=== PATIENT | female | born 1975 | race Caucasian/White ===

== ENCOUNTER 2016-09-10 01:12 | Emergency (ER) | payer BC ==
[~2016-09-10] VITALS: Ht 165.1 cm; Wt 49.7 kg
[~2016-09-10 01:12] MED LIST: B-COCAP20 PO; FLV1 PO; MIRT15TA2 PO; MTR600X PO; PYR50 PO; SERT100T PO; SUMA100T16 PO; THM100 PO
[2016-09-10 01:18] VITALS: TEMP 36.6; Ht 165.1 cm; Wt 49.7 kg
[2016-09-10 01:47] LABS: BASO % 0.6 %; BASO ABS # 0.03 K/uL (0-0.2); COMPLETE YES; EOS % 5.8 %; HEMATOCRIT 33.1 % (37-47); IG% 0.2 %; LYMPH % 48.3 %; LYMPH ABS # 2.56 K/uL (1.2-3.4); MEAN CELL VOLUME 89.9 fL (80-100); MEAN CORPUSCULAR HEMOGLOBIN 31.8 pg (25-34); MEAN CORPUSCULAR HGB CONC 35.3 g/dl (32-36); MEAN PLATELET VOLUME 10.9 fL (7.4-10.4); MONO % 14.7 %; NEUT % 30.4 %; PLATELET COUNT 156 K/uL (130-400); RED BLOOD COUNT 3.68 M/uL (4.2-5.4)
[2016-09-10 01:56] LABS: URINE APPEARANCE CLEAR (CLEAR); URINE BILIRUBIN NEG (NEG); URINE COLOR YELLOW; URINE NITRITE NEG (NEG); URINE SPECIFIC GRAVITY 1.011 (1.000-1.030); UROBILINOGEN NEG (NEG); ZZUR CULT IF INDIC CLEAN CATCH NO
[2016-09-10 01:57] LABS: MANUAL MICROSCOPIC REQUIRED? NO; PREG INTERNAL NEGATIVE QC NEG CLEAR BACKGROUND; PREG INTERNAL POSITIVE QC POS CONTROL LINE; REVIEW REQ? NO
[2016-09-10 02:03] LABS: BUN/CREATININE RATIO 4.8 (10-20); CALCIUM 8.5 mg/dl (8.5-10.1); CREATININE 0.65 mg/dl (0.60-1.20); POTASSIUM 3.1 mmol/L (3.5-5.1)
[2016-09-10 02:14] LABS: ALB/GLOB RATIO 1.3 (0.9-2); THYROID STIMULATING HORMONE 2.94 uIu/ml (0.300-4.500)
--- NOTE | 2016-09-10 02:29 | EMERGENCY ROOM VISIT NOTE ---
History First contact with patient: :30 Chief Complaint: MENTAL HEALTH EVALUATION Stated Complaint: ANXIETY,DEPRESSION,NOT EATING History of Present Illness The patient is a 41 year old female who presents to the Emergency Department by private vehicle for evaluation of anxiety and depression. She reports a long- standing history of both anxiety and depression. She most recently follows with [facility] provider, Dr. Ho. She has only seen this provider on 2 separate occasions. She saw her a few days ago and it was suggested that she be admitted for "4-5 days" to help with her symptoms of worsening anxiety and depression. She reports that she and her have been for 1.5 years. 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 She reports the stress of raising her children and working worsened her symptoms. She had moved from [place] to [place] with a friend to help save money. From there she moved to [place]. She recently returned to [place] 3-4 weeks ago. Her symptoms of anxiety have worsened. She has had a decreased appetite. She reports this evening was the first meal that she had eaten in 4-5 days. The meal was with her daughters as well as her . This evening, upon returning home, she felt very weak and tired. She equates it to not eating well. She denies any drug or substance use. She reports no alcohol use. She denies any pain rating her discomfort a 0/10. The patient is also treated for migraine headaches. She denies any fevers, chills, recent illness, blurry vision, double vision, slurred speech, facial droop, unilateral weakness/ numbness, chest pain, hallucinations, suicidal ideation, or homicidal ideation. Review of Systems A complete 10-point Review of Systems was discussed with the patient, with pertinent positives and negatives listed in the History of Present Illness. All remaining Review of Systems questions can be considered negative unless otherwise specified. Past Medical/Surgical History Medical Problems: (1) Alcohol abuse (2) Cholecystectomy (3) FX DORSAL VERTEBRA-CLOSE (4) MIGRAINE UNSPECIFIED W/O INTRACT MGRN W/O STATUS MIGRAINOSUS (5) [place] Teeth Removal Surgical Problems: (1) Hx of cholecystectomy Family History Cancer Social History Smoking Status: Current Every Day Smoker Smokeless Tobacco Use: No Alcohol Use: heavy Drug Use: none Marital Status: Housing Status: lives with family Occupation Status: employed Current/Historical Medications Scheduled B-Complex W/ C & Folic Acid (Renal), 1 CAP PO BID Folic Acid (Folic Acid), 1 MG PO QAM Mirtazapine Soltab (Remeron Soltab), 15 MG PO QPM Pyridoxine HCl (Vitamin B-6), 50 MG PO QAM Sertraline Hcl (Zoloft), 200 MG PO QAM Sumatriptan Succinate (Imitrex), 100 MG PO PRN Thiamine HCl (Vitamin B-1), 100 MG PO QAM Scheduled PRN Ibuprofen (Ibuprofen), 600 MG PO TID PRN for PAIN/MD ORDERS Allergies Coded Allergies: No Known Allergies (Unverified , 09/10/16) Physical Exam Vital Signs Date Time Temp Pulse Resp B/P Pulse Ox O2 Delivery O2 Flow Rate FiO2 09/10/16 02:35 91 18 119/81 98 09/10/16 01:18 36.6 101 20 122/85 97 Room Air Pain Rating (0-10): 0 Physical Exam VITAL SIGNS - Vital signs and nursing notes were reviewed. GENERAL - 41-year-old female appearing her stated age who is in no acute distress. HEAD - NC/AT. EYES - PERRL with EOMI bilaterally. Sclera anicteric. Palpebral conjunctiva pink and moist with no injection. EARS - No deformities of external structures noted on gross examination bilaterally. No pain elicited with palpation of the tragus bilaterally. External auditory canals without discharge or otorrhea. Tympanic membranes pearly murphy without retraction or bulging. No fluid or purulent material visualized behind the TM. Handle of malleus, umbo, cone of light, pars tensa/ flaccid all easily visualized. NOSE - Midline and without cyanosis. No epistaxis or purulent drainage noted. Septum midline without deviation or septal hematoma noted. MOUTH/OROPHARYNX - Without perioral cyanosis. Buccal mucosa pink and moist and without leukoplakia. Tongue midline with equal elevation of palate bilaterally. No tonsillar hypertrophy, erythema, or exudates noted. Good dentition noted. NECK - Neck with FROM. Supple to palpation. No lymphadenopathy noted. LUNGS - Chest wall symmetric without accessory muscle use, intercostals retractions, or central cyanosis. Normal vesicular breath sounds CTA B/L. No wheezes, rales, or rhonchi appreciated. CARDIAC - RRR with S1/S2. No murmur, rubs, or gallops appreciated. ABDOMEN - Abdominal contour flat without pulsations or visible masses. BS normoactive all four quadrants. No tenderness, palpable masses, hepatosplenomegaly, or ascites noted. EXTREMITIES - No clubbing or peripheral cyanosis. No pretibial edema present. +3 /5 radial and dorsalis pedis pulses palpated throughout. FROM with no tremors, fasciculations, or clonus noted on PROM throughout. +5/5 strength noted in UE/ LE bilaterally. PSYCHIATRIC - Rate and volume of speech is appropriate. She has no suicidal or homicidal ideation. She is occasionally tearful with conversation involving her daughters. She seems sorrowful of her current situation and not being able to see her daughters as much. She is intelligent individual and reports that she refuses to be treated "in a psych caceres". She has no auditory or visual hallucinations. She is otherwise appropriate, but sad. Medical Decision & Procedures Laboratory Results 09/10/16 01:36 Red Blood Count 3.68, Mean Corpuscular Volume 89.9, Mean Corpuscular Hemoglobin 31.8, Mean Corpuscular Hemoglobin Concent 35.3, Mean Platelet Volume 10.9, Neutrophils (%) (Auto) 30.4, Lymphocytes (%) (Auto) 48.3, Monocytes (%) (Auto) 14.7, Eosinophils (%) (Auto) 5.8, Basophils (%) (Auto) 0.6, Neutrophils # (Auto ) 1.61, Lymphocytes # (Auto) 2.56, Monocytes # (Auto) 0.78, Eosinophils # (Auto ) 0.31, Basophils # (Auto) 0.03 09/10/16 01:36 Test 09/10/16 01:32 09/10/16 01:36 Urine Color YELLOW Urine Appearance CLEAR (CLEAR) Urine pH 6.0 (4.5-7.5) Urine Specific [place] 1.011 (1.000-1.030) Urine Protein NEG (NEG) Urine Glucose (UA) NEG (NEG) Urine Ketones NEG (NEG) Urine Occult Blood NEG (NEG) Urine Nitrite NEG (NEG) Urine Bilirubin NEG (NEG) Urine Urobilinogen NEG (NEG) Urine Leukocyte Esterase NEG (NEG) Urine Test NEG (NEG) Urine Opiates Screen NEG (NEG) Urine Methadone, Qualitative NEG (NEG) Urine Barbiturates POS (NEG) Urine Phencyclidine (PCP) Level NEG (NEG) Ur Amphetamine/Methamphetamine NEG (NEG) MDMA (Ecstasy) Screen NEG (NEG) Urine Benzodiazepines Screen NEG (NEG) Urine Cocaine Metabolite NEG (NEG) Urine Marijuana (THC) NEG (NEG) White Blood Count 5.30 K/uL (4.8-10.8) Red Blood Count 3.68 M/uL (4.2-5.4) Hemoglobin 11.7 g/dL (12.0-16.0) Hematocrit 33.1 % (37-47) Mean Corpuscular Volume 89.9 fL (80-100) Mean Corpuscular Hemoglobin 31.8 pg (25-34) Mean Corpuscular Hemoglobin Concent 35.3 g/dl (32-36) Platelet Count 156 K/uL (130-400) Mean Platelet Volume 10.9 fL (7.4-10.4) Neutrophils (%) (Auto) 30.4 % Lymphocytes (%) (Auto) 48.3 % Monocytes (%) (Auto) 14.7 % Eosinophils (%) (Auto) 5.8 % Basophils (%) (Auto) 0.6 % Neutrophils # (Auto) 1.61 K/uL (1.4-6.5) Lymphocytes # (Auto) 2.56 K/uL (1.2-3.4) Monocytes # (Auto) 0.78 K/uL (0.11-0.59) Eosinophils # (Auto) 0.31 K/uL (0-0.5) Basophils # (Auto) 0.03 K/uL (0-0.2) RDW Standard Deviation 46.3 fL (36.4-46.3) RDW Coefficient of Variation 14.1 % (11.5-14.5) Immature Granulocyte % (Auto) 0.2 % Immature Granulocyte # (Auto) 0.01 K/uL (0.00-0.02) Anion Gap 6.0 mmol/L (3-11) Est Creatinine Clear Calc Drug Dose 87.6 ml/min Estimated GFR () 126.0 Estimated GFR (Non- 108.7 BUN/Creatinine Ratio 4.8 (10-20) Calcium Level 8.5 mg/dl (8.5-10.1) Total Bilirubin 0.3 mg/dl (0.2-1) Aspartate Amino Transf (AST/SGOT) 30 U/L (15-37) Alanine Aminotransferase (ALT/SGPT) 35 U/L (12-78) Alkaline Phosphatase 37 U/L (45-117) Total Protein 7.4 gm/dl (6.4-8.2) Albumin 4.2 gm/dl (3.4-5.0) Globulin 3.2 gm/dl (2.5-4.0) Albumin/Globulin Ratio 1.3 (0.9-2) Thyroid Stimulating Hormone (TSH) 2.940 uIu/ml (0.300-4.500) Salicylates Level 2.2 mg/dl (2.8-20) Acetaminophen Level 14 ug/ml (10-30) Ethyl Alcohol mg/dL < 3.0 mg/dl (0-3) ED Course Patient was seen and evaluated by myself. Labs were obtained. I had a discussion with the patient with case management present. Laboratory results demonstrate no acute leukocytosis, worrisome anemia, or bandemia. She has no significant electrolyte abnormalities. Urine tox demonstrates barbiturates, but no other significant findings. Medical alcohol was negative. I had a discussion with the patient offered inpatient management which she adamantly declines this point. She's not suicidal or homicidal. She is able to make this decision herself. She declines any further evaluation or intervention at this point. The patient will follow-up with her psychiatrist today's visit. She will return to the emergency department for any changing or worsening symptoms. Patient discharged home afebrile and in good Medical Decision Given the patient's presentation and stated complaints, I did elect to perform the above-mentioned workup. The patient presents today for worsening anxiety and depression. I had a lengthy discussion with the patient with case management present. The patient declines inpatient evaluation. She is adamant that she is not interested at all for this. She reports that her psychiatrist lied to her by sending her to the emergency department. She felt as though she should be admitted on a medical basis. She refuses psychiatric admission. Her exam is completely unremarkable. She has no focal neurological deficits. The patient does have obvious anxiety and worsening depression, however she is certainly not suicidal or homicidal. The patient does not appear to be a threat to herself. She is simply seeking help for change. I did discuss that inpatient management would likely be beneficial for the patient as she would have intensive therapy stop her change her current medication regime that she is concerned about the effectiveness at this point. She still adamantly declines and elects to be discharged. She declines conversation with mobile crisis. Patient is completely cognitive and able to make this decision. The patient was educated on following up with her psychologist and psychiatrist from today's visit. She was educated on worrisome symptoms for return visit to the emergency department. Patient discharged home in good condition. In the evaluation and treatment of this patient, the following differential diagnoses were considered: Hypoglycemia, Barbiturate Toxicity, Benzodiazepine Toxicity, Depression and Suicidality, Diabetic Ketoacidosis, Encephalitis, Ethylene Glycol Toxicity, Meningitis, Metabolic Acidosis, Opioid Toxicity, CVA, TIA, Intracranial Abnormality, Acute Psychosis, Amongst Others. Impression Primary Impression: Anxiety Additional Impressions: Depression No appetite Departure Information Dispostion Home / Self-Care Condition GOOD Referrals No Doctor, Assigned (PCP) Patient Instructions My [facility] Additional Instructions Please follow-up with your mental health provider from today's visit. Return for any changing or worsening symptoms. Problem Qualifiers Additional Impressions: Depression Depression Type: unspecified Qualified Codes: F32.9 - Major depressive disorder, single episode, unspecified
[2016-09-10 02:35] VITALS: BP 119/81; PULSE 91; O2SAT 98
[2016-09-10 02:43] LABS: BENZODIAZEPINE, URINE NEG (NEG); COCAINE,URINE NEG (NEG); PHENCYCLIDINE, URINE NEG (NEG)
== END 2016-09-10 02:36 | disposition home or self-care (01) ==
LOC: C.EDB 01:13 → C.EDA 02:36
DX: F41.9 Anxiety disorder, unspecified (principal); F32.9 Major depressive disorder, single episode, unspecified; R63.0 Anorexia; F10.10 Alcohol abuse, uncomplicated; G43.909 Migraine, unspecified, not intractable, without status migrainosus; F17.200 Nicotine dependence, unspecified, uncomplicated

== ENCOUNTER → 2016-11-06 | Outpatient (CLI) | payer BC ==
[~2016-11-06] MED LIST changes: +GABA1CAP4 PO; +IMT50 PO; +LEVE500T PO; +SERT-234 PO
--- NOTE | 2016-11-06 13:28 | EEG Procedure Note ---
EEG Procedure Note Date of Service Nov 06, 2016. Start / End Times Start Time: 9:08 AM End Time: 9:29 AM Referring Physician Desirae Banerjee/Chris Jarrett History This is a 41-year-old female who presents with episodes of convulsions. EEG for further evaluation of seizure etiology and medication management. Pertinent home medications: Gabapentin and Keppra Home Medication List Scheduled B-Complex W/ C & Folic Acid (Renal), 1 CAP PO BID Folic Acid (Folic Acid), 1 MG PO QAM Mirtazapine Soltab (Remeron Soltab), 15 MG PO QPM Pyridoxine HCl (Vitamin B-6), 50 MG PO QAM Sertraline Hcl (Zoloft), 200 MG PO QAM Sumatriptan Succinate (Imitrex), 100 MG PO PRN Thiamine HCl (Vitamin B-1), 100 MG PO QAM Scheduled PRN Ibuprofen (Ibuprofen), 600 MG PO TID PRN for PAIN/MD ORDERS Description This is a 21 electrode EEG with a single channel dedicated to limited EKG. The electrodes were placed in accordance with the International 10-20 system. At the start of the recording the patient was in an awake state. Background was well organized and composed of symmetric mixed alpha and beta frequencies. There was a symmetric well-formed moderate amplitude 10-11 Hz posterior dominant rhythm that was reactive to eye opening and closure. Hyperventilation was not done. Intermittent photic stimulation at various frequencies produced no abnormalities. Drowsiness was indicated by loss of muscle artifact and slowing of background rhythm. There was no sleep transients. Interpretation This is a normal awake and drowsy routine EEG. There was no electrographic seizures or epileptiform discharges. Clinical Correlation A normal EEG does not rule out epilepsy if there is a strong clinical suspicion.
== END | disposition home or self-care (01) ==
LOC: C.NEUR 08:54
PROVIDERS: ATTEND Physician Assistant
DX: R56.9 Unspecified convulsions (principal)

== ENCOUNTER 2017-04-14 17:44 | Emergency (ER) | payer BC ==
[2017-04-14 17:44] VITALS: TEMP 37.3; O2SAT 99
[~2017-04-14 17:44] MED LIST changes: -GABA1CAP4 PO; -IMT50 PO; -LEVE500T PO; -SERT-234 PO
[2017-04-14] MEDS ORDERED: SERT-234 PO (18:43)
[2017-04-14] MEDS ORDERED: GABA1CAP4 PO (18:43)
[2017-04-14] MEDS ORDERED: LEVE500T PO (18:43)
[2017-04-14] MEDS ORDERED: IMT50 PO (18:43)
[2017-04-14 18:50] LABS: BASO % 1.2 %; BASO ABS # 0.09 K/uL (0-0.2); COMPLETE YES; EOS % 2.2 %; HEMATOCRIT 40.2 % (37-47); IG% 0.3 %; LYMPH % 31.6 %; LYMPH ABS # 2.31 K/uL (1.2-3.4); MEAN CELL VOLUME 89.5 fL (80-100); MEAN CORPUSCULAR HEMOGLOBIN 31.6 pg (25-34); MEAN CORPUSCULAR HGB CONC 35.3 g/dl (32-36); MEAN PLATELET VOLUME 10.5 fL (7.4-10.4); MONO % 6.6 %; NEUT % 58.1 %; PLATELET COUNT 289 K/uL (130-400); RED BLOOD COUNT 4.49 M/uL (4.2-5.4); WHITE BLOOD COUNT 7.32 K/uL (4.8-10.8)
[2017-04-14 18:59] LABS: URINE APPEARANCE CLEAR (CLEAR); URINE BILIRUBIN NEG (NEG); URINE COLOR YELLOW; URINE NITRITE NEG (NEG); URINE SPECIFIC GRAVITY 1.017 (1.000-1.030); UROBILINOGEN NEG (NEG)
[2017-04-14 19:00] LABS: MANUAL MICROSCOPIC REQUIRED? NO; REVIEW REQ? NO
[2017-04-14 19:01] LABS: PREG INTERNAL NEGATIVE QC NEG CLEAR BACKGROUND; PREG INTERNAL POSITIVE QC POS CONTROL LINE
--- NOTE | 2017-04-14 19:05 | EMERGENCY ROOM VISIT NOTE ---
History First contact with patient: 18:03 Chief Complaint: ALCOHOL OVERDOSE Stated Complaint: OVERDOSE, SEMI RESPONSIVE Nursing Triage Summary: Pt. arrives via ALS to exam room A4. Per reports from EMS, pt. has history of drug and alcohol abuse and depression. Joseph, pt. was drinking and took a 10mg ambien pill that was not hers. Boyfriend is present at bedside and states that he was trying to convince the patient to check in to rehab and she was agreeable to going to the [facility] prior to her passing out. Boyfriend states it was at that time that she passed out. History of Present Illness The patient is a 42 year old female who presents to the Emergency Room with complaints of alcohol intoxication. Per report from EMS, patient has a strong history of drug and alcohol abuse, as well as depression. Patient's friend is at bedside and states that he has been trying to talk the patient into going to a rehabilitation for her alcohol use, he has been trying to get her to go to the [facility]. Patient's friend states that she has been on a drinking binge for the past few weeks. Patient will answer minimal questions, states that she took the Ambien to help her sleep, she denies any SI or HI, and states she does not want to go to rehab. Review of Systems Limited review of systems due to patient's intoxicated state. Past Medical/Surgical History Medical Problems: (1) Alcohol abuse (2) Cholecystectomy (3) FX DORSAL VERTEBRA-CLOSE (4) MIGRAINE UNSPECIFIED W/O INTRACT MGRN W/O STATUS MIGRAINOSUS (5) [place] Teeth Removal Surgical Problems: (1) Hx of cholecystectomy Family History Cancer Social History Smoking Status: Unknown if Ever Smoked Alcohol Use: heavy Drug Use: other (patient's friend reports a history of "drug abuse" but is unsure what drugs she has used in the past) Marital Status: Housing Status: lives with family Occupation Status: employed Current/Historical Medications Scheduled Gabapentin (Gabapentin), 300 MG PO TID Levetiractam (Levetiracetam), 500 MG PO BID Sertraline (Zoloft), 200 MG PO DAILY Scheduled PRN Sumatriptan Succinate (Sumatriptan Succinate), 50 MG PO UD PRN for Migraine Allergies No known allergies Physical Exam Vital Signs Date Time Temp Pulse Resp B/P (MAP) Pulse Ox O2 Delivery O2 Flow Rate FiO2 04/14/17 19:24 91 18 125/86 99 Room Air 04/14/17 18:06 98 04/14/17 17:44 37.3 99 17 116/82 99 Room Air 04/14/17 17:44 99 Room Air Physical Exam VITALS - Vitals are noted on the nurse's note and reviewed by myself. Vital signs stable. GENERAL -Sleeping but able to be aroused, in no acute distress, non-diaphoretic , well-developed well-nourished. The patient smells strongly of alcohol. SKIN - The skin was without obvious lacerations, abrasions, or rashes. There is no tenting of the skin. Capillary reflex less than 2 seconds. HEENT - Normocephalic, atraumatic. PERRL. Conjunctiva with mild injection without icterus. Tympanic membranes without erythema or effusion bilaterally no hemotympanum. External auditory canals are clear. Nares patent bilaterally. No epistaxis. Oropharynx without erythema or exudate. Uvula midline. Oral mucosal moist. No lymphadenopathy. Neck is supple without cervical spine tenderness. HEART - Regular rate and rhythm without murmurs gallops or rubs. Peripheral pulses 2+ all 4 extremities. LUNGS - Clear to auscultation bilaterally without wheezes, rales or rhonchi. ABDOMEN - Positive bowel sounds x 4. Normal tympanic percussion. Soft, nontender, without masses or organomegaly. MUSCULOSKELETAL - Gross motor function of the upper and lower extremities intact. NEUROLOGIC - The patient is groggy on exam, but is able to be aroused and is oriented to person and event. She moves all 4 extremities with good strength, sensation intact, normal gait observed. No focal deficits noted on exam. Medical Decision & Procedures Laboratory Results 04/14/17 18:22 Red Blood Count 4.49, Mean Corpuscular Volume 89.5, Mean Corpuscular Hemoglobin 31.6, Mean Corpuscular Hemoglobin Concent 35.3, Mean Platelet Volume 10.5, Neutrophils (%) (Auto) 58.1, Lymphocytes (%) (Auto) 31.6, Monocytes (%) (Auto) 6.6, Eosinophils (%) (Auto) 2.2, Basophils (%) (Auto) 1.2, Neutrophils # (Auto) 4.26, Lymphocytes # (Auto) 2.31, Monocytes # (Auto) 0.48, Eosinophils # (Auto) 0.16, Basophils # (Auto) 0.09 04/14/17 18:22 Test 04/14/17 18:22 04/14/17 18:40 White Blood Count 7.32 K/uL (4.8-10.8) Red Blood Count 4.49 M/uL (4.2-5.4) Hemoglobin 14.2 g/dL (12.0-16.0) Hematocrit 40.2 % (37-47) Mean Corpuscular Volume 89.5 fL (80-100) Mean Corpuscular Hemoglobin 31.6 pg (25-34) Mean Corpuscular Hemoglobin Concent 35.3 g/dl (32-36) Platelet Count 289 K/uL (130-400) Mean Platelet Volume 10.5 fL (7.4-10.4) Neutrophils (%) (Auto) 58.1 % Lymphocytes (%) (Auto) 31.6 % Monocytes (%) (Auto) 6.6 % Eosinophils (%) (Auto) 2.2 % Basophils (%) (Auto) 1.2 % Neutrophils # (Auto) 4.26 K/uL (1.4-6.5) Lymphocytes # (Auto) 2.31 K/uL (1.2-3.4) Monocytes # (Auto) 0.48 K/uL (0.11-0.59) Eosinophils # (Auto) 0.16 K/uL (0-0.5) Basophils # (Auto) 0.09 K/uL (0-0.2) RDW Standard Deviation 52.2 fL (36.4-46.3) RDW Coefficient of Variation 16.0 % (11.5-14.5) Immature Granulocyte % (Auto) 0.3 % Immature Granulocyte # (Auto) 0.02 K/uL (0.00-0.02) Anion Gap 15.0 mmol/L (3-11) Estimated GFR () 135.5 Estimated GFR (Non- 116.9 BUN/Creatinine Ratio 22.6 (10-20) Calcium Level 7.6 mg/dl (8.5-10.1) Total Bilirubin 0.2 mg/dl (0.2-1) Aspartate Amino Transf (AST/SGOT) 134 U/L (15-37) Alanine Aminotransferase (ALT/SGPT) 86 U/L (12-78) Alkaline Phosphatase 74 U/L (45-117) Total Protein 7.9 gm/dl (6.4-8.2) Albumin 3.5 gm/dl (3.4-5.0) Globulin 4.4 gm/dl (2.5-4.0) Albumin/Globulin Ratio 0.8 (0.9-2) Thyroid Stimulating Hormone (TSH) 1.060 uIu/ml (0.300-4.500) Chemistry Specimen Hemolysis Salicylates Level 2.6 mg/dl (2.8-20) Acetaminophen Level < 2 ug/ml (10-30) Ethyl Alcohol mg/dL 294.2 mg/dl (0-3) Urine Color YELLOW Urine Appearance CLEAR (CLEAR) Urine pH 5.0 (4.5-7.5) Urine Specific [place] 1.017 (1.000-1.030) Urine Protein NEG (NEG) Urine Glucose (UA) NEG (NEG) Urine Ketones 2+ (NEG) Urine Occult Blood NEG (NEG) Urine Nitrite NEG (NEG) Urine Bilirubin NEG (NEG) Urine Urobilinogen NEG (NEG) Urine Leukocyte Esterase NEG (NEG) Urine Test NEG (NEG) Urine Opiates Screen NEG (NEG) Urine Methadone, Qualitative NEG (NEG) Urine Barbiturates NEG (NEG) Urine Phencyclidine (PCP) Level NEG (NEG) Ur Amphetamine/Methamphetamine NEG (NEG) MDMA (Ecstasy) Screen NEG (NEG) Urine Benzodiazepines Screen NEG (NEG) Urine Cocaine Metabolite NEG (NEG) Urine Marijuana (THC) NEG (NEG) Medical Decision CC: Patient presenting with complaint of alcohol overdose Interpretation of Labs: No leukocytosis, no anemia, no significant electrolyte abnormalities, normal renal function, normal liver enzymes and lipase. Urine drug screen negative. Alcohol level significantly elevated. UA negative for infection, negative urine . Differential Diagnosis: Includes, but not limited to alcohol intoxication, withdrawal, drug abuse, intentional overdose, suicidal ideation, homicidal ideation, among others. Medication Reconciliation: I attest that I have personally reviewed the patient' s current medication list. Vital signs review: I reviewed the patient's vital signs and interpret them as follows: T: Afebrile; BP: Normotensive; HR: Mildly tachycardic; RR: Within normal limits; Pulse Ox: Within normal limits on room air. Blood pressure screening: The patient was found to have normal blood pressure on screening and does not require follow-up for repeat blood pressure check. Summary: Patient was evaluated at bedside, history and physical exam performed. Patient is sleeping, but arousable and will answer simple questions. Much of the history provided by the patient's friend, Archie. Given the patient's presentation and exam findings, I did elect to perform the above-mentioned workup. The patient presents today minimally responsive and with strong smell of alcohol on her person. Report of heavy alcohol consumption today. The patient was monitored constantly throughout entire stay in the emergency setting. Medical alcohol level was elevated significantly at 294.2 mg/dL. Labs reviewed as above, otherwise unremarkable. Patient discussed with Dr. iVdal, who agrees with my assessment and plan. After some time in the Emergency Department, the patient became more alert, ambulating in the room and stating she wants to go home. Patient becoming upset, demanding to go home. Discussed with Dr. Vidal, at bedside to discuss with patient. A phone call was made to the patient's father, who agrees the patient can be released if she goes home with her friend. Patient's friend Archie agreed to this and accepts full responsibility for taking the patient home. Impression Primary Impression: Alcohol use with intoxication Departure Information Dispostion Home / Self-Care Condition GOOD Referrals Rebeca Johnson, C.R.N.P. (PCP) Forms HOME CARE DOCUMENTATION FORM, IMPORTANT VISIT INFORMATION Patient Instructions ED Alcohol Abuse, ED Seizure Alcohol Withdrawal, My [facility] Additional Instructions Do not drink any further alcohol today and avoid such excessive drinking in the future. Increase fluids over the next 48 hours. Tylenol 500 mg every 6 hours as needed for pain/headache Do not drive or operate machinery for the next 24 hours. Follow-up with your PCP to discuss getting help for your alcohol abuse.
[2017-04-14 19:13] LABS: ACETAMINOPHEN < 2 ug/ml (10-30); ALT/SGPT 86 U/L (12-78); AST/SGOT 134 U/L (15-37); BLOOD UREA NITROGEN 11 mg/dl (7-18); BUN/CREATININE RATIO 22.6 (10-20); CALCIUM 7.6 mg/dl (8.5-10.1); CARBON DIOXIDE 17 mmol/L (21-32); CHLORIDE 102 mmol/L (98-107); CREATININE 0.51 mg/dl (0.60-1.20); GLUCOSE 135 mg/dl (70-99); SODIUM 134 mmol/L (136-145)
[2017-04-14 19:23] LABS: ALB/GLOB RATIO 0.8 (0.9-2); ALKALINE PHOSPHATASE 74 U/L (45-117)
[2017-04-14 19:24] VITALS: BP 125/86; PULSE 91; O2SAT 99
[2017-04-14 19:31] LABS: BENZODIAZEPINE, URINE NEG (NEG); COCAINE,URINE NEG (NEG); PHENCYCLIDINE, URINE NEG (NEG)
--- NOTE | 2017-04-14 19:55 | EMERGENCY ROOM VISIT NOTE ---
History Report prepared by Macrina: Andreina Hernandez Under the Supervision of: Dr. Wilfredo Vidal M.D. First contact with patient: 18:03 Chief Complaint: ALCOHOL OVERDOSE Stated Complaint: OVERDOSE, SEMI RESPONSIVE Nursing Triage Summary: Pt. arrives via ALS to exam room A4. Per reports from EMS, pt. has history of drug and alcohol abuse and depression. Joseph, pt. was drinking and took a 10mg ambien pill that was not hers. Boyfriend is present at bedside and states that he was trying to convince the patient to check in to rehab and she was agreeable to going to the [facility] prior to her passing out. Boyfriend states it was at that time that she passed out. History of Present Illness The patient is a 42 year old female who presents to the Emergency Room with complaints of an episode of an alcohol overdose occurring just prior to arrival. Per patient's friend, the patient has been on a drinking binge. He states the patient "is going to " if she keeps drinking like she has been. The patient drank Ambien with alcohol to "get high". Per patient's friend, the patient was passed out so he called an ambulance. The patient states she doesn' t want to be here. The patient's friend refuses to sign the patient out. Source of History: patient Onset: just prior to arrival Position: other (global) Quality: other (alcohol intoxication) Timing: other (episode) Modifying Factors (Relieving): other (none) Review of Systems See HPI for pertinent positives & negatives. A total of 10 systems reviewed and were otherwise negative. Past Medical & Surgical Medical Problems: (1) Alcohol abuse (2) Cholecystectomy (3) FX DORSAL VERTEBRA-CLOSE (4) MIGRAINE UNSPECIFIED W/O INTRACT MGRN W/O STATUS MIGRAINOSUS (5) [place] Teeth Removal Surgical Problems: (1) Hx of cholecystectomy Family History Cancer Social History Smoking Status: Unknown if Ever Smoked Alcohol Use: heavy Drug Use: none Marital Status: Housing Status: lives with family Occupation Status: employed Current/Historical Medications Scheduled Gabapentin (Gabapentin), 300 MG PO TID Levetiractam (Levetiracetam), 500 MG PO BID Sertraline (Zoloft), 200 MG PO DAILY Scheduled PRN Sumatriptan Succinate (Sumatriptan Succinate), 50 MG PO UD PRN for Migraine Allergies Coded Allergies: No Known Allergies (Unverified , 09/10/16) Physical Exam Vital Signs Date Time Temp Pulse Resp B/P (MAP) Pulse Ox O2 Delivery O2 Flow Rate FiO2 04/14/17 19:24 91 18 125/86 99 Room Air 04/14/17 18:06 98 04/14/17 17:44 37.3 99 17 116/82 99 Room Air 04/14/17 17:44 99 Room Air Physical Exam Vital signs reviewed. General: Odor of EtOH in the breath, disheveled 42-year-old female. No signs of trauma. HEENT: Mild scleral injection bilaterally, PERRLA, neck supple, dry mucous membranes. Cardiovascular: Regular rate and rhythm, no extra sounds. Pulmonary: Clear to auscultation bilaterally, normal work of breathing. Abdomen: Soft, nontender, nondistended, positive bowel sounds. Musculoskeletal: Upper and lower extremities atraumatic, no peripheral edema Skin: Warm, dry, no rash. Atraumatic. Neurologic: Patient is currently nonverbal. Medical Decision & Procedures Laboratory Results 04/14/17 18:22 Red Blood Count 4.49, Mean Corpuscular Volume 89.5, Mean Corpuscular Hemoglobin 31.6, Mean Corpuscular Hemoglobin Concent 35.3, Mean Platelet Volume 10.5, Neutrophils (%) (Auto) 58.1, Lymphocytes (%) (Auto) 31.6, Monocytes (%) (Auto) 6.6, Eosinophils (%) (Auto) 2.2, Basophils (%) (Auto) 1.2, Neutrophils # (Auto) 4.26, Lymphocytes # (Auto) 2.31, Monocytes # (Auto) 0.48, Eosinophils # (Auto) 0.16, Basophils # (Auto) 0.09 04/14/17 18:22 Test 04/14/17 18:22 04/14/17 18:40 White Blood Count 7.32 K/uL (4.8-10.8) Red Blood Count 4.49 M/uL (4.2-5.4) Hemoglobin 14.2 g/dL (12.0-16.0) Hematocrit 40.2 % (37-47) Mean Corpuscular Volume 89.5 fL (80-100) Mean Corpuscular Hemoglobin 31.6 pg (25-34) Mean Corpuscular Hemoglobin Concent 35.3 g/dl (32-36) Platelet Count 289 K/uL (130-400) Mean Platelet Volume 10.5 fL (7.4-10.4) Neutrophils (%) (Auto) 58.1 % Lymphocytes (%) (Auto) 31.6 % Monocytes (%) (Auto) 6.6 % Eosinophils (%) (Auto) 2.2 % Basophils (%) (Auto) 1.2 % Neutrophils # (Auto) 4.26 K/uL (1.4-6.5) Lymphocytes # (Auto) 2.31 K/uL (1.2-3.4) Monocytes # (Auto) 0.48 K/uL (0.11-0.59) Eosinophils # (Auto) 0.16 K/uL (0-0.5) Basophils # (Auto) 0.09 K/uL (0-0.2) RDW Standard Deviation 52.2 fL (36.4-46.3) RDW Coefficient of Variation 16.0 % (11.5-14.5) Immature Granulocyte % (Auto) 0.3 % Immature Granulocyte # (Auto) 0.02 K/uL (0.00-0.02) Anion Gap 15.0 mmol/L (3-11) Estimated GFR () 135.5 Estimated GFR (Non- 116.9 BUN/Creatinine Ratio 22.6 (10-20) Calcium Level 7.6 mg/dl (8.5-10.1) Total Bilirubin 0.2 mg/dl (0.2-1) Aspartate Amino Transf (AST/SGOT) 134 U/L (15-37) Alanine Aminotransferase (ALT/SGPT) 86 U/L (12-78) Alkaline Phosphatase 74 U/L (45-117) Total Protein 7.9 gm/dl (6.4-8.2) Albumin 3.5 gm/dl (3.4-5.0) Globulin 4.4 gm/dl (2.5-4.0) Albumin/Globulin Ratio 0.8 (0.9-2) Thyroid Stimulating Hormone (TSH) 1.060 uIu/ml (0.300-4.500) Chemistry Specimen Hemolysis Salicylates Level 2.6 mg/dl (2.8-20) Acetaminophen Level < 2 ug/ml (10-30) Ethyl Alcohol mg/dL 294.2 mg/dl (0-3) Urine Color YELLOW Urine Appearance CLEAR (CLEAR) Urine pH 5.0 (4.5-7.5) Urine Specific [place] 1.017 (1.000-1.030) Urine Protein NEG (NEG) Urine Glucose (UA) NEG (NEG) Urine Ketones 2+ (NEG) Urine Occult Blood NEG (NEG) Urine Nitrite NEG (NEG) Urine Bilirubin NEG (NEG) Urine Urobilinogen NEG (NEG) Urine Leukocyte Esterase NEG (NEG) Urine Test NEG (NEG) Urine Opiates Screen NEG (NEG) Urine Methadone, Qualitative NEG (NEG) Urine Barbiturates NEG (NEG) Urine Phencyclidine (PCP) Level NEG (NEG) Ur Amphetamine/Methamphetamine NEG (NEG) MDMA (Ecstasy) Screen NEG (NEG) Urine Benzodiazepines Screen NEG (NEG) Urine Cocaine Metabolite NEG (NEG) Urine Marijuana (THC) NEG (NEG) Labs reviewed by ED physician. ED Course 1944: Past medical records reviewed. The patient was evaluated in room A4A. A complete history and physical examination was performed. 1951: The patient's father says its okay to release the patient to her friend. Father states, "everyone has a clear conscious by releasing her, this is all on her". The patient's friend states he will watch after the patient. 1954: Security escorted the patient, she refused to wait for disposition instructions. Medical Decision Differential diagnosis: Etiologies such as alcohol intoxication, toxicologic, infection, hypoglycemia, electrolyte abnormalities, cardiac sources, intracerebral event, neurologic, as well as others were entertained. Called to this room to evaluate this patient. The patient presents to the hospital intoxicated. She is belligerent and wishes to leave she will not allow anybody to examine her. She is here with her significant other. We discussed this patient's case with the patient's father on speaker phone. He wishes to absolve the emergency department of her care and states that he has been dealing with her for years. He is already that she has been belligerent and knows she is taking up valuable resources in the emergency department. He wishes for us to discharge her in the care of her friend. This was done as he requested. Blood Pressure Screening Patient's blood pressure: Normal blood pressure Impression Primary Impression: Alcohol intoxication Scribe Attestation The scribe's documentation has been prepared under my direction and personally reviewed by me in its entirety. I confirm that the note above accurately reflects all work, treatment, procedures, and medical decision making performed by me. Departure Information Dispostion Home / Self-Care Referrals Rebeca Johnson C.R.N.P. (PCP) Forms HOME CARE DOCUMENTATION FORM, IMPORTANT VISIT INFORMATION Patient Instructions My [facility] Problem Qualifiers Primary Impression: Alcohol intoxication Complication of substance-induced condition: uncomplicated Qualified Codes: F10.920 - Alcohol use, unspecified with intoxication, uncomplicated
== END 2017-04-14 20:00 | disposition home or self-care (01) ==
LOC: EDBD 17:44 → C.EDA 17:47
DX: F10.920 Alcohol use, unspecified with intoxication, uncomplicated (principal); F19.10 Other psychoactive substance abuse, uncomplicated; G43.909 Migraine, unspecified, not intractable, without status migrainosus; Z80.9 Family history of malignant neoplasm, unspecified; Z79.899 Other long term (current) drug therapy

== ENCOUNTER 2017-04-28 13:04 | Emergency (ER) | payer BC, OTHER ==
[~2017-04-28 13:04] MED LIST changes: -B-COCAP20 PO; -FLV1 PO; +GABA1CAP4 PO; +IMT50 PO; +LEVE500T PO; -MIRT15TA2 PO; -MTR600X PO; -PYR50 PO; +SERT-234 PO; -SERT100T PO; -SUMA100T16 PO; -THM100 PO
[2017-04-28 13:17] VITALS: TEMP 37
--- NOTE | 2017-04-28 13:52 | EMERGENCY ROOM VISIT NOTE ---
History Report prepared by Macrina: Alesha Serna Under the Supervision of: Dr. Joe Nguyen M.D. First contact with patient: 13:31 Chief Complaint: UNRESPONSIVE Nursing Triage Summary: Pt brought [facility] from [facility] for unresponsiveness, pt brought to facility by probation, was reportably carried in. Pt has hx of seizures, takes Keppra and Neurotin. Pt resisted BSG by EMS. Pt arrives to ED, opens eyes, does not answer questions. History of Present Illness The patient is a 42 year old female who presents to the Emergency Room with complaints of an episode of seizure like activity. Per the guards, the patient was being transferred from her home to the [facility] for violating her parole. The life guard states that she thinks the patient was faking her seizure episode. The patient states she is prescribed Keppra for seizures, noting she has not been taking her medication recently. The patient notes that her last known menstrual period was 1 week ago. HPI limited for poor cooperation. Of note, the patient is adamant that she wants to be discharged, she does not want any testing. Source of History: patient, other (evp and chief operating officer) History Limited By: poor cooperation Onset: Today Position: other (global) Quality: other (seizure ) Review of Systems See HPI for pertinent positives & negatives. A total of 10 systems reviewed and were otherwise negative. Past Medical & Surgical Medical Problems: (1) Alcohol abuse (2) Cholecystectomy (3) FX DORSAL VERTEBRA-CLOSE (4) MIGRAINE UNSPECIFIED W/O INTRACT MGRN W/O STATUS MIGRAINOSUS (5) [place] Teeth Removal Surgical Problems: (1) Hx of cholecystectomy Family History Cancer Social History Smoking Status: Current Every Day Smoker Alcohol Use: heavy Drug Use: other Marital Status: Housing Status: lives with family Occupation Status: employed Current/Historical Medications Scheduled Gabapentin (Gabapentin), 300 MG PO TID Levetiractam (Levetiracetam), 500 MG PO BID Sertraline (Zoloft), 200 MG PO DAILY Scheduled PRN Sumatriptan Succinate (Sumatriptan Succinate), 50 MG PO UD PRN for Migraine Allergies Coded Allergies: No Known Allergies (Unverified , 09/10/16) Physical Exam Vital Signs Date Time Temp Pulse Resp B/P (MAP) Pulse Ox O2 Delivery O2 Flow Rate FiO2 04/28/17 13:55 89 20 150/88 98 04/28/17 13:38 97 20 150/88 97 Room Air 04/28/17 13:17 37.0 80 20 143/98 98 Room Air 04/28/17 13:12 84 Physical Exam GENERAL: Patient is in no acute distress. HEENT: No acute trauma, normocephalic atraumatic, mucous membranes dry, no nasal congestion, no scleral icterus. PEERL. NECK: No stridor, no adenopathy, no meningismus, trachea is midline. LUNGS: Clear to auscultation bilaterally, no wheeze, no rhonchi, breath sounds equal. HEART: Mildly tachycardic, no murmurs, regular rhythm. ABDOMEN: Soft, nontender, bowel sounds positive, no hernias, no peritonitis. EXTREMITIES: No cyanosis or edema, full range of motion of all the joints without pain or difficulty, no signs for acute trauma. NEUROLOGIC: Oriented x 3, no acute motor or sensory deficits, no focal weakness. SKIN: No rash, no jaundice, no diaphoresis. Medical Decision & Procedures Laboratory Results Test 04/28/17 13:21 Bedside Glucose 79 mg/dl (70-90) Laboratory results reviewed by me. ED Course 1334: The patient was evaluated in room C3. A complete history and physical exam was performed. 1350: Reevaluated the patient. Discussed results and discharge instructions: she verbalized understanding and agreement. The patient is ready for discharge. Medical Decision The patient is a 42 year old female who presents to the ED with complaints of a seizure episode. Differential diagnoses considered include pseudoseizure, medical noncompliance, syncope, malingering, seizure . The patient presents with an episode of potential seizure activity versus pseudoseizure. The patient is very uncooperative. She is currently awake and alert. She has no focal neurologic deficits. She does not appear post ictal. She remembers what happened, she does not want any testing. She did not bite her tongue or lose her urinary continence. The patient is leaving AGAINST MEDICAL ADVICE. The cause of the presentation is unclear, she was encouraged to return for worsening symptoms. She was discharged in the custody of the [facility] staff. Medication Reconcilliation Current Medication List: was personally reviewed by me Blood Pressure Screening Patient's blood pressure: Elevated blood pressure Blood pressure disposition: Elevated BP felt to be situational Impression Primary Impression: Unresponsive episode Scribe Attestation The scribe's documentation has been prepared under my direction and personally reviewed by me in its entirety. I confirm that the note above accurately reflects all work, treatment, procedures, and medical decision making performed by me. Departure Information Dispostion Against Medical Advice Referrals [facility] (PCP) Patient Instructions My [facility] Additional Instructions return if you change your mind about an evaluation please take your meds as prescribed you left today against medical advice
[2017-04-28 13:55] VITALS: BP 150/88; PULSE 89; O2SAT 98
== END 2017-04-28 13:56 | disposition left against medical advice (07) ==
LOC: EDBD 13:04 → C.EDC 13:07
DX: R40.4 Transient alteration of awareness (principal); Z90.49 Acquired absence of other specified parts of digestive tract; Z80.9 Family history of malignant neoplasm, unspecified; F17.210 Nicotine dependence, cigarettes, uncomplicated; F10.10 Alcohol abuse, uncomplicated; Z79.899 Other long term (current) drug therapy

== ENCOUNTER → 2017-08-27 | Outpatient (CLI) | payer OTHER ==
[~2017-08-27] MED LIST changes: +GABA-1219 PO; -GABA1CAP4 PO
--- NOTE | 2017-08-27 10:49 | DIAGNOSTIC IMAGING REPORT ---
L VENOUS DOPP LOWER EXT UNILAT CLINICAL HISTORY: LT LEG PAIN,SWELLING,R/O DVT TECHNIQUE: Venous Doppler COMPARISON STUDY: None FINDINGS: Normal venous Doppler. No evidence for deep venous thrombosis. At the point of interest and clinical nodularity within the distal left calf is a 3.7 x 2 x 0.5 cm slightly complex collection or hematoma. This is within the subcutaneous tissues. IMPRESSION: 1. Normal venous Doppler. 2. Clinically palpable nodularity appears to represent a small linear hematoma The above report was generated using voice recognition software. It may contain grammatical, syntax or spelling errors. Electronically signed by: Sanford Grimes M.D. 08/27/2017 10:48 AM Dictated Date/Time: 08/27/2017 10:36 AM
== END | disposition home or self-care (01) ==
LOC: C.ULTR 10:03
PROVIDERS: ATTEND Family Medicine
DX: M79.662 Pain in left lower leg (principal); R22.42 Localized swelling, mass and lump, left lower limb